=== PATIENT | male | born 1955 | race Caucasian/White ===

== ENCOUNTER → 2016-11-11 | Outpatient (CLI) | payer MEDICARE, OTHER ==
[~2016-11-11] MED LIST: AMLODIPINE BESYL5 MG PO; AMOXICILLIN875 MG PO; AMOXIL875 MG PO; ASPIRIN EC81 M1 PO; ASPIRINEC PO; CELEBREX PO; CETIRIZINE HCL10 MG PO; DICLOFENAC PO; FLEXERIL PO; FLEXERIL10 MG PO; FLONASE 0.05% N16 GM NS; FUROSEMIDE40 MG PO; KEFLEX PO; LASIX PO; LASIX20 MG PO; LEVAQUIN PO; LOPRESSOR PO; LORTAB 10-3251 EACH PO; LORTAB 7.5-5001 TAB PO; LOSARTAN POTASS50 MG PO; MEDROL4 MG/DOSE- PO; METOPROLOL SUCC25 MG PO; METOPROLOL TAR25 MG PO; MUCINEX DM1 TAB.SR . PO; NEURONTIN600 MG PO; OMEPRAZOLE40 MG PO; OXYCODON HCL-AP1 TA2 PO; OXYCODONE HCL10 MG PO; PRILOSEC PO; TIZANIDINE HCL2 MG PO; VOLTAREN; ZYRTEC PO
--- NOTE | ~2016-11-11 | EKG ---
PATIENT: BERYL ESCOBAR UNIT #: [id number] Ventricular Rate: 68 BPM Atrial Rate: 68 BPM P-R Interval: 162 ms QRS Duration: 98 ms Q-T Interval: 380 ms QTC Calculation(Bezet): 404 ms P Cleveland: 63 degrees Calculated R Cleveland: 3 degrees Calculated T Cleveland: 25 degrees Diagnosis Line: Normal sinus rhythm Diagnosis Line: Low voltage QRS Diagnosis Line: Borderline ECG Diagnosis Line: When compared with ECG of 17-JUL-2011 14:20, Diagnosis Line: No significant change was found Diagnosis Line: Confirmed by SHANA VALADEZ MD ([id number]) on Diagnosis Line: 11/11/2016 12:13:56 PM INTERPRETING MD: LYUDMILA
[2016-11-11 12:24] LABS: BUN/CREATININE RATIO 15.88; CALCIUM SERUM 9.2 mg/dL (8.4-10.2); CREATININE SERUM 1.7 mg/dL (0.6-1.4); GLOM FILT RATE Estimated 43.5 mL/min (>60); POTASSIUM 4.9 mmol/L (3.5-5.1)
== END | disposition home or self-care (01) ==
LOC: CAMB 09:42
PROVIDERS: Orthopaedic Surgery
DX: Z01.818 Encounter for other preprocedural examination (principal); M19.071 Primary osteoarthritis, right ankle and foot; Q66.1 Congenital talipes calcaneovarus
CPT/HCPCS: 36415; 80048; 93005

== ENCOUNTER 2016-11-25 06:08 | Inpatient (IN) | payer MEDICARE, OTHER ==
--- NOTE | ~2016-11-25 | OR ---
Unit #: [id number] #: [id number] Patient: BERYL ESCOBAR [id number] [address] [place], [place] [address] [id number] MR#: [id number] NAME: BERYL ESCOBAR. ROOM: 460 Date of Procedure: 11/25/2016 Admission Date: 11/25/2016 Surgeon: Agatha Jones M.D. : 1955 Attending Physician: Agatha Jones M.D. Referring Physician: Agatha Jones M.D. Primary Care Physician: Barrett Mckenzie M.D. OPERATIVE REPORT PREOPERATIVE DIAGNOSES 1. Right ankle degenerative arthritis. 2. Right cavovarus foot. 3. Right peroneus brevis and longus tendon tears. 4. Right L5-S1 radiculopathy with eversion weakness. POSTOPERATIVE DIAGNOSES 1. Right ankle degenerative arthritis. 2. Right cavovarus foot. 3. Right peroneus brevis and longus tendon tears. 4. Right L5-S1 radiculopathy with eversion weakness. PROCEDURES PERFORMED 1. Right ankle fusion (76756). 2. Right lateralizing calcaneal osteotomy (21141). 3. Right first metatarsal elevating osteotomy (15894). 4. Right posterior tibial tendon transfer to peroneus brevis (65282). ASSISTANTS MD Mike and JESSICA Washington. ANESTHESIA General and popliteal saphenous block. INDICATIONS FOR SURGERY The patient is a 61-year-old male with a previous lumbar spine surgery, who now presents with severe right eversion weakness, symptomatic ankle arthritis, unresponsive to conservative care, and a cavovarus foot. He has 10 degrees of hindfoot varus. He has absent eversion and weak inversion along with normal ankle dorsiflexion and slightly weak plantar flexion. EMGs documented superimposed L5-S1 radiculopathy and peripheral neuropathy. The patient does have a history of alcohol abuse. The patient has failed conservative care. He is therefore to undergo operative correction of the above-mentioned deformities. The posterior tibial tendon appears to be a deforming force on the foot and therefore we will transfer the posterior tibial tendon to the peroneus brevis tendon to realign the foot and correct his supination deformity. DESCRIPTION OF PROCEDURE The patient underwent right popliteal saphenous block. He was taken to the operating room and placed in a supine position. General anesthetic was induced. The right lower extremity was prepped and draped in the Unit #: [id number] #: [id number] Patient: BERYL ESCOBAR usual sterile fashion. A time-out was performed identifying the right ankle as the correct operative extremity. The IV antibiotic protocol was followed. A 7 cm anterolateral longitudinal incision was made over the ankle joint. Subcutaneous tissue was carefully divided. The extensor retinaculum was opened. The extensor musculature was retracted medially. The joint was exposed with subperiosteal dissection. The power osteotome, curved curettes, and rongeurs were utilized to remove the articular cartilage from both sides of the ankle joint. A 1 cm segment of fibula was resected at the level of the joint line. This piece of bone was morselized to be utilized for autogenous bone graft later in the case. 3 mL of Augment platelet-derived growth factor was then placed into the tibiotalar joint and the joint was positioned appropriately. It was then fixated with three cannulated partially threaded OrthoHelix 7.0 mm diameter cancellous screws. One screw was placed from proximal medial to distal lateral, a second was placed from proximal lateral to distal medial, a third was placed from posterior to anterior into the talar neck. Excellent fixation was achieved. Care was taken to ensure that the ankle was in neutral dorsiflexion and was completely corrected out of varus. At this point, it was noted that the first metatarsal head was depressed and that the forefoot was resting about 15 degrees of forefoot valgus, therefore an elevating first metatarsal base osteotomy was required. A dorsal longitudinal incision was made over the first metatarsal base. Subcutaneous tissue was divided. The extensor hallucis longus tendon was retracted. The microsagittal saw was used to make a dorsal closing wedge osteotomy of the first metatarsal base beginning 1.5 cm distal to the first tarsometatarsal joint. The bony wedge was removed and saved for autogenous graft for the tibiotalar joint. The osteotomy was closed and fixated with a tension band technique. An OrthoHelix 4.0 mm diameter cannulated screw was placed in the proximal fragment and a drill hole was placed transversely through the distal fragment. 20-gauge wire was placed through the hole in the distal fragment and wrapped in a [id number] fashion around the head of the screw and then tightened with a large needle local combination truck driver. Excellent fixation was achieved. The wire was cut and then bent to close to the bone and the screw was then tightened. A medial longitudinal incision was then made over the posterior tibial tendon sheath distally. The subcutaneous tissue was divided. The tendon sheath was opened. The posterior tibial tendon was sharply dissected off the navicular and tagged with 2-0 Vicryl. A 5 cm medial longitudinal incision was made along the medial tibia 10 cm proximal to the ankle joint. The deep muscle fascia was opened. The posterior tibial tendon was then retrieved and the free end was pulled into this wound. A 12 cm lateral longitudinal incision was made beginning 6 cm proximal to the tip of the fibula and ending at the base of the fifth metatarsal. Subcutaneous tissue was carefully divided. The peroneal tendon sheath was opened. There was extensive scarring and tearing of both the peroneus longus and brevis tendons, which were completely nonfunctioning and scarred to the sheath into the underlying calcaneus. Both tendons were resected; however, there was a 3 cm segment of the peroneus brevis, which appeared normal and was left attached to the fifth metatarsal base. The peroneal tubercle was enlarged and was excised with the power osteotome. Unit #: [id number] #: [id number] Patient: BERYL ESCOBAR The free end of the posterior tibial tendon was then passed behind the fibula into the lateral wound and then passed along the lateral foot and was sutured to the peroneus brevis tendon using a Krackow suture with 2-0 FiberWire suture. Additional crjftt-qa-[id number] sutures were placed at the repair site to ensure a strong repair of the posterior tibial tendon to the stump of the peroneus brevis tendon. The lateral calcaneus was then exposed just posterior to the peroneal tendon sheath. Baby Hohmann retractors were placed. The microsagittal saw and power osteotome were then used to osteotomize the calcaneus at a 45 degrees angle to the plantar aspect of the foot. A laminar cytogenetic technician was placed. The medial soft tissues were spread with a laminar cytogenetic technician. The calcaneus was then displaced laterally 1 cm and fixated with the OrthoHelix ISO plate. The ISO plate blade was impacted into the posterior fragment and the blade was fixated to the calcaneus with a screw. A transverse screw was placed in the more anterior fragment. Excellent fixation was achieved. It was then found that the heel was now in about 2 degrees of valgus. The ankle was fused in proper position and the posterior tibial tendon transfer appeared to be stable. The tourniquet was released with a total tourniquet time of 2 hours and 10 minutes. Bleeding was controlled with electrocautery. The deep tissues were closed with 2-0 Vicryl. Subcutaneous tissue was closed with 3-0 Vicryl. Skin was closed with 3-0 nylon horizontal mattress sutures. Xeroform gauze, dressing, sponges, Webril, and a posterior fiberglass splint were applied. The patient was then transported to the recovery room in stable condition. ESTIMATED BLOOD LOSS 100 mL. COMPLICATIONS None. SPECIMENS None. TOURNIQUET TIME 2 hours and 10 minutes. PLAN The patient will be nonweightbearing for 3 months postoperatively. Dictated by.Will Davis/yuni TD: 11/25/2016 18:49 JOB #: [id number] Unit #: [id number] #: [id number] Patient: BERYL ESCOBAR OPERATIVE REPORT X Missy Jones MD X PROCEDURE OPERATIVE NOTE
--- NOTE | ~2016-11-25 | HP ---
Unit #: [id number] #: [id number] Patient: BERYL ESCOBAR [id number] [address] [place], [place] [address] [id number] MR#: [id number] NAME: BERYL ESCOBAR. ROOM: Age: Sex: M Admission Date: 11/25/2016 : 1955 Attending Physician: Agatha Jones M.D. Referring Physician: Agatha Jones M.D. Primary Care Physician: Barrett Mckenzie M.D. HISTORY AND PHYSICAL DATE OF ANTICIPATED ADMISSION/PROCEDURE November 25, 2016 CHIEF COMPLAINT Right ankle pain and leg weakness. HISTORY OF PRESENT ILLNESS The patient is a 61-year-old male who presents with significant right ankle pain, right-sided weakness, and varus instability. The patient had back surgery three years ago, and he has had weakness and tingling in his foot ever since. He wears custom orthotics and uses a cane. He is also on gabapentin and sees a pain medicine specialist. The foot exam shows a cavovarus foot with eight degrees of heel varus. X-rays show four degrees of tibiotalar varus. The patient underwent EMGs and nerve conduction studies which show a bilateral L5 and S1 radiculopathy, right worse than left, as well as a concomitant peripheral neuropathy. Right ankle MRI shows a complete peroneus brevis tear and a tear of the peroneus longus with the presence of an os peroneum. The patient also has degenerative arthritis of the medial aspect of tibial plafond with loss of articular cartilage of one-third of the ankle joint space. The patient has continued right ankle instability particularly in inversion and has significant ankle pain. The patient is therefore admitted for right ankle fusion, lateralizing calcaneal osteotomy, transfer of the posterior tibial tendon to the peroneus brevis tendon, and possible elevating osteotomy of the first metatarsal. PAST MEDICAL HISTORY 1. History of alcohol abuse. 2. Former smoker. 3. Gastroesophageal reflux disease. 4. Lumbar radiculopathy. 5. Hepatic steatosis. 6. Cavovarus foot deformity. PAST SURGICAL HISTORY 1. Lower back surgery. 2. Neck surgery. HOME MEDICATIONS 1. Cetirizine. Unit #: [id number] #: [id number] Patient: BERYL ESCOBAR 2. Cyclobenzaprine. 3. Fluticasone. 4. Furosemide. 5. Gabapentin. 6. Hydrocodone. 7. Losartan. 8. Metoprolol. 9. Omeprazole. 10. Voltaren gel. ALLERGIES AMLODIPINE, LISINOPRIL, AND METOPROLOL. FAMILY HISTORY Hypertension, arthritis. SOCIAL HISTORY The patient is a heavy drinker drinking 15 alcoholic drinks a week. He is a former smoker with greater than five pack-year history. PHYSICAL EXAMINATION GENERAL: This is a well-developed, well-nourished male in no acute distress. HEENT: Pharynx is clear. NECK: Supple without masses. HEART: Regular sinus rhythm without murmurs or gallops. LUNGS: Clear. ABDOMEN: Soft and nontender without masses or organomegaly. EXTREMITIES: Gait evaluation shows that patient has an abnormal mildly antalgic gait. He is unable to heel or toe walk. The patient has 3+/4 knee reflexes bilaterally. His right ankle jerk is 0/4, and the left ankle jerk is 1/4. On standing, the patient has 10 degrees of hindfoot varus. He has very weak right ankle eversion. He exhibits 5-/5 ankle dorsiflexion, 5+/5 ankle inversion, and 5+/5 ankle plantar flexion. The patient is maximally tender over the anteromedial ankle joint and lateral hindfoot and peroneal tendon sheath. The patient has a weak flexor hallucis longus and flexor digitorum longus function. The FHL is not amenable to transfer given this weakness. The patient has a mild cavus deformity of the foot, but there is no evidence of fixed forefoot valgus. DIAGNOSTIC STUDIES IMAGING: Standing x-rays of the right ankle show eight degrees of tibiotalar varus. There is mild narrowing of the superomedial joint space. Right ankle MRI shows cartilaginous loss of the medial tibial plafond with joint space narrowing. The patient also has tears of the brevis and longus tendons. ADMITTING DIAGNOSES 1. Symptomatic right heel varus secondary to L5 and S1 radiculopathy and chronic tears of the peroneus brevis and longus tendons. 2. Right ankle varus degenerative arthritis. PLAN The patient has failed conservative care. He is therefore admitted for operative intervention. This will entail right ankle fusion, lateralizing calcaneal osteotomy, transfer of the posterior tibial tendon to the Unit #: [id number] #: [id number] Patient: BERYL ESCOBAR peroneus brevis tendon and elevating first metatarsal osteotomy. We will use Augment platelet-derived growth factor. This procedure was described along with the risks of bleeding, infection, nerve damage, need for further surgery in the future, prolonged recovery time, deep venous thrombosis, pulmonary embolism, anesthetic complications, no guarantee of a normal foot, persistent limp, failure to fuse, and wound healing problems. He understands the above risks and agrees to proceed. He understands he will be nonweightbearing three months postoperatively. Dictated by Will Giordano/remington TD: 11/24/2016 21:12 JOB #: [id number] HISTORY AND PHYSICAL X Missy Jones MD X HISTORY AND PHYSICAL
--- NOTE | ~2016-11-25 | CO ---
Unit #: [id number] #: [id number] Patient: BERYL ESCOBAR [id number] [facility]. [place], [place] [address] [id number] I MR#: [id number] NAME: BERYL ESCOBAR. ROOM: [facility] Age: 61 Sex: M Admission Date: 11/25/2016 : 1955 Attending Physician: Agatha Jones M.D. Primary Care Physician: Barrett Mckenzie M.D. Consultation Date: 11/25/2016 CONSULTATION REPORT REASON FOR CONSULTATION History of alcohol abuse. HISTORY OF PRESENT ILLNESS The patient is a 61-year-old male with past medical history of hypertension, GERD, Miller esophagus, pancreatitis, obstructive sleep apnea, who was admitted by Dr. Jones for right ankle surgery. The patient states that he has had at least five years of right ankle pain. He states that he initially injured his ankle at work. 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 He states that he has had persistent pain since that time. He has tried orthotics as well a physical therapy. He was seen by Dr. Jones who recommended surgery. The patient denies any fever, no cough or cold symptoms, no chest pain, no difficulty breathing. He denies any vomiting or diarrhea. He states that he does have obstructive sleep apnea but is noncompliant with CPAP. Also of note, he has a history of heavy alcohol use but he states that his last drink was more than five years ago. PAST MEDICAL HISTORY 1. Admission to [facility] September 27-2010 for pancreatitis. 2. GERD. 3. Lumbar radiculopathy. 4. Miller esophagus. 5. Hypertension. PAST SURGICAL HISTORY 1. Back surgery. 2. Neck surgery. 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 He has a history of alcohol abuse with the last drink being more than five years ago. He denies tobacco use. FAMILY HISTORY Family history is notable for his dad having thyroid issues. ALLERGIES TRAVIS inhibitors. HOME MEDICATIONS 1. Losartan 50 mg daily. Unit #: [id number] #: [id number] Patient: BERYL ESCOBAR 2. Metoprolol 25 mg daily. 3. Cetirizine 10 mg daily. 4. Flonase b.i.d. 5. Furosemide 40 mg daily. 6. Flexeril 10 mg daily p.r.n. 7. Neurontin 600 mg t.i.d. 8. Prilosec 40 mg b.i.d. 9. Diclofenac cream daily. 10. Oxycodone 10 mg b.i.d. REVIEW OF SYSTEMS A complete review of systems is negative except as indicated in the HPI. DIAGNOSTIC STUDIES CARDIOVASCULAR: EKG from November 11 showed normal sinus rhythm with a rate of 68 beats per minute. PHYSICAL EXAMINATION VITAL SIGNS: Temperature is 97.6. Blood pressure 98/61, pulse 74, respirations 12, oxygen saturation 95% on room air. GENERAL: The patient is a male who is awake and alert, in no acute distress. HEENT: The head is atraumatic. Mucous membranes are moist. NECK: Neck is supple. Trachea is midline. CARDIOVASCULAR: Regular rate and rhythm. LUNGS: Lungs are clear to auscultation bilaterally with no increased work of breathing. ABDOMEN: Abdomen is soft, nontender, with bowel sounds present all four quadrants. EXTREMITIES: The right ankle is in an TRAVIS bandage that is clean, dry and intact. There is no pedal edema involving the left lower extremity. NEUROLOGIC: The patient is awake and alert. He follows commands. PSYCHIATRIC: Mood and affect are normal. The patient is cooperative. SKIN: Skin of examined areas is warm and dry. ASSESSMENT The patient is a 61-year-old male with: 1. Status post right ankle surgery. 2. Hypertension. The patient's home medications have been restarted. 3. Gastroesophageal reflux disease. 4. History of Miller esophagus. The patient has seen Dr. Harris in the most recent past. He had an EGD on October 11, 2014 that showed short segment of Miller esophagus and moderate gastritis. The pathology report did show findings consistent with focal Miller esophagus but was negative for malignancy. 5. History of pancreatitis. 6. History of heavy alcohol use. The reason for consultation was history of alcohol abuse however the patient states that it has been more than five years since his last drink. 7. Obstructive sleep apnea, noncompliant with CPAP. PLAN 1. Regarding the patient's chronic medical conditions, his home medications have been restarted. 2. Regarding obstructive sleep apnea, I have ordered the obstructive sleep apnea protocol as the patient is noncompliant with CPAP. 3. Regarding history of heavy alcohol use, the patient states that his last drink was more than five years ago. Unit #: [id number] #: [id number] Patient: BERYL ESCOBAR Thank you very much for the consultation. We will follow the patient along closely with you. Dictated by... Will Hunt/lucy TD: 11/25/2016 17:33 JOB #: [id number] CONSULTATION REPORT X Melisa Arias MD X CONSULTATION REPORT
--- NOTE | ~2016-11-25 | DS ---
Unit #: [id number] #: [id number] Patient: BERYL ESCOBAR [id number] [place], [place] [address] [id number] I MR#: [id number] NAME: BERYL ESCOBAR ROOM: 460 Age: 61 Sex: M Admission Date: 11/25/2016 : 1955 Discharge Date: Attending Physician: Agatha Jones M.D. Referring Physician: Agatha Jones M.D. Primary Care Physician: Barrett Mckenzie M.D. DISCHARGE SUMMARY ADDENDUM The patient's discharge was delayed for workup of a small postoperative fever (isolated fever of 101). Workup was negative with UA, blood cultures and chest x-ray. This was suspected secondary to atelectasis. No further treatment is required. He has been cleared by internal medicine service at this time to be discharged to rehab facility. From an orthopedic standpoint, he is non-weight bearing on the affected extremity. He should follow up with Dr. Jones as scheduled. Dictated by... Jose Young M.D. STEFANIE/julio c TD: 11/29/2016 10:34 JOB #: [id number] DISCHARGE SUMMARY X Jose Young MD DISCHARGE SUMMARY
--- NOTE | ~2016-11-25 | CR72 ---
[facility] A Service of [facility] RADIOLOGY TEXT RESULTS PATIENT: BERYL ESCOBAR LOCATION: [facility] 460-01 : [birth year] UNIT #: [id number] AGE: [address]: Missy Jones MD SEX: M ORDER DR: [id number] [facility] [address] [facility]. [place], [place] [address] [id number] MR#: [id number] Acc #: [id number] NAME: BERYL ESCOBAR. : 1955 SEX: M STUDY DATE/TIME: UNIT: [facility] ROOM: [facility] STUDY DESCRIPTION: CR Chest Single View Portable Attending Physician: Agatha Jones M.D. Referring Physician: Agatha Jones M.D. Ordering Physician: Amelia Abraham A.P.R.N. Primary Care Physician: Barrett Mckenzie M.D. MEDICAL IMAGING REPORT This report is preliminary unless electronic signature is present EXAM Chest portable 11/27/2016 1340 hours HISTORY 61-year-old man complaining of shortness of air today. COMPARISON 08/08/2016 FINDINGS Portable upright chest demonstrates normal heart size with stable tortuous aorta. The lungs are clear and there are no effusions. IMPRESSION Stable heart size at the upper limits of normal with stable tortuous aorta. The lungs are clear. There are no effusions. Dictated by... Princess Warren M.D. THIS IS AN ELECTRONICALLY VERIFIED REPORT Princess Warren M.D. at 11/28/2016 9:18 AM SMM/nicole TD: 11/27/2016 18:38 JOB #: [id number] MEDICAL IMAGING REPORT COPY
--- NOTE | ~2016-11-25 | DS ---
Unit #: [id number] #: [id number] Patient: BERYL CAIN [id number] [address] [place], [place] [address] [id number] I MR#: [id number] NAME: BERYL CAIN. ROOM: [facility] Age: Sex: M Admission Date: 11/25/2016 : 1955 Discharge Date: 11/28/2016 Attending Physician: Agatha Jones M.D. Referring Physician: Agatha Jones M.D. Primary Care Physician: Barrett Mckenzie M.D. DISCHARGE SUMMARY HISTORY OF PRESENT ILLNESS Mr. Cain is a 61-year-old male who was hospitalized for diagnosis of right ankle DJD and cavovarus foot. He has a history of hypertension, GERD, history of Miller's esophagitis, pancreatitis, heavy alcohol use, obstructive sleep apnea. Mr. Cain was taken to the operating room on November 25, 2016 for a right ankle fusion, calcaneal osteotomy, first metatarsal osteotomy, and posterior tibial tendon transfer. He tolerated this procedure well and was returned to the floor in a good condition. 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 He was weaned off the HOT STRIP MILL SUPERVISOR and his pain was well controlled with just oral pain medications. He worked with physical therapy and remained nonweightbearing on the right lower extremity and worked on using a walker as well as a knee scooter. He tolerated his diet well. No instances of nausea or vomiting. He was medically stable throughout his stay. He did spike a fever to 101 degrees and a sepsis workup was performed including blood cultures, UA, chest pain, CBC, lactic acid which all returned within normal limits. He has done well since. Mr. Cain will be discharged to a short-term rehab facility. DISCHARGE MEDICATIONS Current list of medications he is taking include: 1. Fluticasone propionate as needed. 2. Rivaroxaban 10 mg once daily. 3. Gabapentin 600 mg t.i.d. 4. Cetirizine 10 mg p.o. daily. 5. Metoprolol 25 mg daily. 6. Percocet 10/325 one to two tabs p.o. q.4 hours p.r.n. pain. 7. Omeprazole 40 mg p.o. b.i.d. 8. Cyclobenzaprine 10 mg p.o. daily. PLAN There are no medical issues or tests that are outstanding at this time. Again, he is nonweightbearing on the right lower extremity. He will follow up in [address] Jones in his clinic. Dictated by... UNKNOWN NOT KNOW for Agatha Jones M.D. / Unit #: [id number] #: [id number] Patient: BERYL CAIN TD: 11/28/2016 10:37 JOB #: [id number] DISCHARGE SUMMARY X X DISCHARGE SUMMARY
[~2016-11-25 06:08] MED LIST changes: -LASIX PO; -VOLTAREN; -ZYRTEC PO
[2016-11-25] MEDS ORDERED: VOLTAREN (07:09)
[2016-11-26 04:36] LABS: HEMATOCRIT 34.1 % (38.0-50.0); HEMOGLOBIN 11.2 gm/dL (13.0-16.0); MEAN CELL VOLUME 94.4 FL (83-96); MEAN CORPUSCULAR HEMOGLOBIN 30.9 PG (28-34); MEAN CORPUSCULAR HGB CONC 32.8 g/dL (30-36); MEAN PLATELET VOLUME 9.1 FL (6.5-11.5); RED BLOOD COUNT 3.61 X10e (3.90-5.60); RED CELL DISTRIBUTION WIDTH 14.2 % (11.0-15.5); WHITE BLOOD COUNT 6.2 X10e3 (4.0-10.5)
[2016-11-26 04:55] LABS: ALBUMIN SERUM 3.5 g/dL (3.5-5.0); ALKALINE PHOSPHATASE 57 U/L (32-92); ALT (SGPT) 14 U/L (10-40); AST (SGOT) 10 U/L (10-42); BILIRUBIN,TOTAL 0.6 mg/dL (0.2-2.0); BLOOD UREA NITROGEN 15 mg/dL (9-23); CALCIUM SERUM 8.2 mg/dL (8.4-10.2); CARBON DIOXIDE 26 mmol/L (22-31); CHLORIDE 107 mmol/L (100-111); CREATININE SERUM 1.2 mg/dL (0.6-1.4); GLOM FILT RATE Estimated ABOVE60 mL/min (>60); GLUCOSE FASTING 120 mg/dL (70-110); POTASSIUM 4.1 mmol/L (3.5-5.1); PROTEIN TOTAL SERUM 6.2 g/dL (6.0-8.3); SODIUM 138 mmol/L (135-145)
[2016-11-27 04:09] LABS: BASOPHIL% 0.5 % (0-2.5); EOSINOPHIL# 0.1 X10e3 (0-0.7); EOSINOPHIL% 1.7 % (0.0-7.0); HEMATOCRIT 33.3 % (38.0-50.0); LYMPHOCYTE# 2.2 X10e3 (1.0-3.5); LYMPHOCYTE% 30.2 % (17.0-45.0); MEAN CELL VOLUME 94.7 FL (83-96); MEAN CORPUSCULAR HEMOGLOBIN 31.4 PG (28-34); MEAN CORPUSCULAR HGB CONC 33.1 g/dL (30-36); MEAN PLATELET VOLUME 9.3 FL (6.5-11.5); MONOCYTE# 1.1 X10e3 (0-1.0); MONOCYTE% 15.6 % (3.0-12.0); NEUTROPHIL# 3.8 X10e3 (1.5-7.1); PLATELET COUNT 133 X10e3 (140-420); RED BLOOD COUNT 3.52 X10e (3.90-5.60); RED CELL DISTRIBUTION WIDTH 14.1 % (11.0-15.5); WHITE BLOOD COUNT 7.4 X10e3 (4.0-10.5)
[2016-11-27 04:10] LABS: DIFF IND NO
[2016-11-27 04:36] LABS: BUN/CREATININE RATIO 11.87; CALCIUM SERUM 8.3 mg/dL (8.4-10.2); CREATININE SERUM 1.6 mg/dL (0.6-1.4); GLOM FILT RATE Estimated 46.6 mL/min (>60); MAGNESIUM 1.6 mg/dL (1.6-3.0); POTASSIUM 4.1 mmol/L (3.5-5.1)
[2016-11-27 16:31] LABS: URINE SOURCE CLEAN CATCH
[2016-11-27 16:46] LABS: URINE APPEARANCE CLEAR; URINE BILIRUBIN NEG (NEG); URINE BLOOD NEG (NEG); URINE COLOR YELLOW; URINE GLUCOSE NEG (NEG); URINE KETONE NEG (NEG); URINE LEUKOCYTE ESTERASE NEG (NEG); URINE NITRATE NEG (NEG); URINE PH 6.5 (5-8); URINE PROTEIN NEG (NEG); URINE SPECIFIC GRAVITY 1.012 (1.003-1.035); URINE UROBILINOGEN 0.2 MG/DL (NEG)
[2016-11-27 16:52] LABS: CULTURE INDICATED? NO
[2016-11-28 03:07] LABS: HEMATOCRIT 30.6 % (38.0-50.0); HEMOGLOBIN 10.2 gm/dL (13.0-16.0); MEAN CELL VOLUME 94.5 FL (83-96); MEAN CORPUSCULAR HEMOGLOBIN 31.4 PG (28-34); MEAN CORPUSCULAR HGB CONC 33.2 g/dL (30-36); MEAN PLATELET VOLUME 9.2 FL (6.5-11.5); RED BLOOD COUNT 3.24 X10e (3.90-5.60); RED CELL DISTRIBUTION WIDTH 13.8 % (11.0-15.5); WHITE BLOOD COUNT 6.3 X10e3 (4.0-10.5)
[2016-11-28 03:28] LABS: BILIRUBIN,TOTAL 0.4 mg/dL (0.2-2.0); BUN/CREATININE RATIO 12.14; CALCIUM SERUM 8.4 mg/dL (8.4-10.2); CREATININE SERUM 1.4 mg/dL (0.6-1.4); GLOM FILT RATE Estimated 54.4 mL/min (>60); MAGNESIUM 1.8 mg/dL (1.6-3.0); POTASSIUM 4.2 mmol/L (3.5-5.1); PROTEIN TOTAL SERUM 5.7 g/dL (6.0-8.3)
[2016-11-29 03:45] LABS: HEMATOCRIT 33.6 % (38.0-50.0); MEAN CELL VOLUME 94.8 FL (83-96); MEAN CORPUSCULAR HEMOGLOBIN 31.1 PG (28-34); MEAN CORPUSCULAR HGB CONC 32.8 g/dL (30-36); MEAN PLATELET VOLUME 8.8 FL (6.5-11.5); RED BLOOD COUNT 3.54 X10e (3.90-5.60); RED CELL DISTRIBUTION WIDTH 13.5 % (11.0-15.5); WHITE BLOOD COUNT 5.5 X10e3 (4.0-10.5)
[2016-11-29 04:16] LABS: BUN/CREATININE RATIO 12.14; CALCIUM SERUM 8.9 mg/dL (8.4-10.2); CREATININE SERUM 1.4 mg/dL (0.6-1.4); GLOM FILT RATE Estimated 54.4 mL/min (>60); MAGNESIUM 1.8 mg/dL (1.6-3.0); POTASSIUM 4.5 mmol/L (3.5-5.1)
[2017-05-04] MEDS ORDERED: ZYRTEC PO (10:23)
[2017-05-04] MEDS ORDERED: LASIX PO (10:23)
== END 2016-11-29 14:00 | DRG 493 ==
LOC: CSUR 06:08 → CPACUOF 06:30 → C4B 13:05
PROVIDERS: Family Medicine; Nurse Practitioner; Orthopaedic Surgery
PROC: 0QBL0ZZ Excision of Right Tarsal, Open Approach (ICD-10-PCS; 2016-11-25)
PROC: 0LXS0ZZ Transfer Right Ankle Tendon, Open Approach (ICD-10-PCS; 2016-11-25)
PROC: 0SGF07Z Fusion of Right Ankle Joint with Autologous Tissue Substitute, Open Approach (ICD-10-PCS; principal; 2016-11-25 08:30)
PROC: 0QBJ0ZZ Excision of Right Fibula, Open Approach (ICD-10-PCS; 2016-11-25 08:30)
PROC: 0SGF04Z Fusion of Right Ankle Joint with Internal Fixation Device, Open Approach (ICD-10-PCS; 2016-11-25 08:30)
PROC: 0QBN0ZZ Excision of Right Metatarsal, Open Approach (ICD-10-PCS; 2016-11-25 08:30)
DX: Q66.1 Congenital talipes calcaneovarus (principal); J98.11 Atelectasis; K76.0 Fatty (change of) liver, not elsewhere classified; I10 Essential (primary) hypertension; M54.17 Radiculopathy, lumbosacral region; M19.071 Primary osteoarthritis, right ankle and foot; K21.9 Gastro-esophageal reflux disease without esophagitis; Z87.891 Personal history of nicotine dependence; S96.811A Strain of other specified muscles and tendons at ankle and foot level, right foot, initial encounter; G47.33 Obstructive sleep apnea (adult) (pediatric); K22.70 Barrett's esophagus without dysplasia; Z91.19 Patient's noncompliance with other medical treatment and regimen; R50.82 Postprocedural fever; R73.9 Hyperglycemia, unspecified
CPT/HCPCS: 71010; 80048; 80053; 80202; 81003; 82947; 83036; 83605; 83735; 85025; 85027; 87040; 94010; 94760; 94761; 97116; 97162; 97530; C1713; G8978-GP; G8979-GP; J0690; J0696; J2250; J2270; J2795; J3010; J3370; J3411; J3475; J7042

== ENCOUNTER → 2017-01-21 | Outpatient (CLI) | payer MEDICARE, OTHER ==
[~2017-01-21] MED LIST changes: +LASIX PO; +VOLTAREN; +ZYRTEC PO
--- NOTE | ~2017-01-21 | US85 ---
[facility] A Service of [facility] & [facility] RADIOLOGY TEXT RESULTS PATIENT: BERYL ESCOBAR LOCATION: CNIV : 51 UNIT #: [id number] AGE: [address]: BRITTNY PANIAGUA PA-C SEX: M ORDER DR: [id number] [facility] [address] [facility]. [place], [place] [address] [id number] O MR#: [id number] Acc #: [id number] NAME: BERYL ESCOBAR. : 1955 SEX: M STUDY DATE/TIME: 01/21/2017 12:59 UNIT: CNIV ROOM: STUDY DESCRIPTION: SHAY [employer] Stdy Attending Physician: Brittny Paniagua Pa-C Referring Physician: Brittny Paniagua Pa-C Ordering Physician: Physician Non-Staff Primary Care Physician: Barrett Mckenzie M.D. MEDICAL IMAGING REPORT This report is preliminary unless electronic signature is present EXAM Right lower extremity venous ultrasound. HISTORY Right leg swelling status post ankle fusion. Evaluate for DVT. Right lower extremity swelling 3 months, intermittent. Right ankle surgery October 2016. No history of DVT or SVT. TECHNIQUE Real-time ultrasonography of the right lower extremity venous structures performed. Gale-scale, color Doppler, Doppler pulse-wave interrogation utilized. FINDINGS Right common femoral vein, profunda femoris vein, femoral vein, popliteal vein, posterior tibial, peroneal, anterior tibial veins patent with normal compressibility where anatomically possible and normal color Doppler interrogation demonstrating [id number]-[id number] flow. In the right popliteal fossa, there is an ovoid fluid collection measuring 4.85 cm x 2.58 cm x 0.73 cm. It may contain some minimal internal septations. 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 Note is made of some mild subcutaneous edema in the foreleg. The great saphenous vein is patent. IMPRESSION 1. Right lower extremity venous ultrasound shows no evidence of deep or superficial venous thrombosis at time of this examination. 2. Mildly complicated fluid collection right popliteal fossa measuring 4.85 cm x 2.58 cm x 0.73 cm, most consistent with dissecting synovial/Henson cyst. Clinical followup recommended. [facility]. [facility] A Service of [facility] & [facility] RADIOLOGY TEXT RESULTS PATIENT: BERYL ESCOBAR LOCATION: [facility] : 53 UNIT #: [id number] AGE: [address]: BRITTNY PANIAGUA PA-C SEX: M ORDER DR: 3. Mild subcutaneous edema right foreleg. Dictated by... Dave Meza M.D. THIS IS AN ELECTRONICALLY VERIFIED REPORT Dave Meza M.D. at 01/21/2017 6:14 PM ASHISH/carline TD: 01/21/2017 15:55 JOB #: [id number] MEDICAL IMAGING REPORT Page 1 of 1 COPY
== END | disposition home or self-care (01) ==
LOC: CNIV 12:29
DX: R79.89 Other specified abnormal findings of blood chemistry (principal); R60.0 Localized edema; Z98.890 Other specified postprocedural states
CPT/HCPCS: 93971

== ENCOUNTER → 2017-04-03 | Outpatient (CLI) | payer MEDICARE, OTHER ==
--- NOTE | ~2017-04-03 | CT95 ---
[facility] A Service of [facility] & [facility] RADIOLOGY TEXT RESULTS PATIENT: BERYL ESCOBAR LOCATION: [facility] : 53 UNIT #: [id number] AGE: [address]: BRITTNY PANIAGUA PA-C SEX: M ORDER DR: [id number] [address] [address] [id number] O MR#: [id number] Acc #: [id number] NAME: BERYL SECOBAR. : 1955 SEX: M STUDY DATE/TIME: 04/03/2017 14:33 UNIT: [facility] ROOM: STUDY DESCRIPTION: CT Lower Ext Rt Wo Cont Attending Physician: Brittny Paniagua Pa-C Referring Physician: Brittny Paniagua Pa-C Ordering Physician: Barrett Mckenzie M.D. Primary Care Physician: Barrett Mckenzie M.D. MEDICAL IMAGING REPORT This report is preliminary unless electronic signature is present. EXAM CT right ankle HISTORY 61-year-old male with pain and swelling right foot and ankle x4 months. Patient is status post fusion. Fusion November 2016. Clinical concern for delayed healing. COMPARISON Right ankle films 04/02/2017 and 09/17/2016. FINDINGS Thin section axial images performed through the right ankle with multiplanar reconstructions. No contrast. This CT examination was performed with one or more of the following radiation dose reduction techniques: automatic exposure control, adjustment of mA and/or kV according to patient size, and iterative reconstruction. Postoperative changes are noted of the ankle with apparent calcaneal osteotomy. Lateral plate and anchors in place. The osteotomy appears healed. No fracture or loosening of the calcaneal instrumentation. The patient has also undergone ankle fusion procedure with 3 cannulated screws traversing the ankle joint, 1 from the medial side, 1 from the lateral side and the third from a posterior approach. There is sclerosis and some interdigitation across the ankle joint but only minimal bony fusion noted. This is predominantly along the posterior aspect of the ankle joint. No fracture or loosening of the instrumentation. There is some periostitis or callus overlying the heads of the 3 screws. The ankle joint is estimated at no more than 25% fused. Some bone fragments are noted about the ankle joint most likely related to fusion procedure. A screw is noted in the proximal first metatarsal which may be related to prior osteotomy. Subtalar joint unremarkable. Normal midfoot alignment. [facility]. [facility] A Service of [facility] RADIOLOGY TEXT RESULTS PATIENT: BERYL ESCOBAR LOCATION: [facility] : 51 UNIT #: [id number] AGE: [address]: BRITTNY PANIAGUA PA-C SEX: M ORDER DR: Moderate amount of generalized soft tissue swelling and edema about the foot and ankle. Visualized ankle tendons grossly intact. IMPRESSION 1. Status post ankle fusion procedure with intact instrumentation. Estimated no more than 25% fusion across the ankle joint. No evidence of instrumentation failure. 2. Status post calcaneal osteotomy which appears well healed. 3. Single bone screw and apparent anchor or wire at the proximal first metatarsal. This may be related to prior osteotomy or fixation. 4. Generalized soft tissue swelling, edema about the foot and ankle most prominent along the lateral aspect. The peroneal tendons are difficult to evaluate due to edema but findings are suggestive of possible tendinopathy and an underlying peroneus brevis or longus tear not excluded. Dictated by... Tiki Mitchell M.D. THIS IS AN ELECTRONICALLY VERIFIED REPORT Tiki Mitchell M.D. at 04/06/2017 5:38 PM CHYNA/lorene TD: 04/06/2017 14:17 JOB #: [id number] MEDICAL IMAGING REPORT Page 1 of 1
== END | disposition home or self-care (01) ==
LOC: SCT 14:10
DX: M25.571 Pain in right ankle and joints of right foot (principal); M25.471 Effusion, right ankle; M79.89 Other specified soft tissue disorders; Z98.890 Other specified postprocedural states
CPT/HCPCS: 73700

== ENCOUNTER → 2017-05-04 | Day surgery (SDC) | payer MEDICARE, OTHER ==
--- NOTE | ~2017-05-04 | OR ---
Unit #: [id number] #: [id number] Patient: BERYL ESCOBAR [id number] [address] [address] [id number] O MR#: [id number] NAME: BERYL ESCOBAR. ROOM: Date of Procedure: 05/04/2017 Admission Date: 05/04/2017 Surgeon: Leon Harris M.D. : 1955 Attending Physician: Leon Harris M.D. Primary Care Physician: Barrett Mckenzie M.D. OPERATIVE REPORT PREOPERATIVE DIAGNOSES The patient presented for surveillance upper endoscopy, history of Miller esophagus, gastroesophageal reflux, and dyspepsia. In addition, he also needs a screening colonoscopy. PROCEDURES PERFORMED Upper gastrointestinal endoscopy and biopsies as well as colonoscopy up to cecum and terminal ileum. POSTOPERATIVE DIAGNOSES For upper endoscopy: 1. The patient had classic changes of Miller esophagus. Appropriate biopsies obtained from the Miller segment and sent for histology. 2. Moderate prepyloric antral gastritis and biopsies also obtained from the antrum for CLOtest. 3. Rest of the examination up to third part of duodenum was normal. For colonoscopy: 1. Mild sigmoid and descending colon diverticulosis. Otherwise, normal examination up to cecum and terminal ileum. The quality of the prep was excellent. No polyps were present or seen. RECOMMENDATIONS 1. Repeat upper endoscopy in 2 years. 2. Repeat colonoscopy in 10 years. SEDATION USED MAC. DESCRIPTION OF PROCEDURE Following detailed explanation of potential risks and complications of an upper endoscopy and a colonoscopy, namely perforation, bleeding, and complications related to sedation, the patient was brought to GI lab and laid in the left lateral decubitus position. Lubricated tip of the Olympus video upper endoscope was passed through the bite block into the proximal esophagus under direct vision. The entire esophageal mucosa was examined. The patient was noted to have classic changes of Miller esophagus in the distal esophagus. The Miller segment was about 3 to 3.5 cm in length. The scope was then advanced into the gastric cavity and the latter was insufflated. Mucosa of the fundus, body, and antrum examined and the patient was noted to have mild to moderate prepyloric antral erosive gastritis. Pylorus was intubated with visualization of the normal duodenal bulb and second and third part of the duodenum. Upon withdrawal Unit #: [id number] #: [id number] Patient: BERYL ESCOBAR and retroflexion, incisura, cardia, and greater curve examined and biopsy obtained from the antrum for CLOtest. The scope was then withdrawn in the distal esophagus. Biopsies obtained from the Miller segment and sent for histology. The scope was then withdrawn all the way up to pharynx. No additional findings noted. The examination table was then turned by 180 degrees and the patient positioned for a colonoscopy. A digital rectal examination was performed, which was normal. Lubricated tip of the Olympus video colonoscope was inserted through the anus and advanced under direct vision. The scope was advanced and passed up to sigmoid into descending colon. Multiple small to medium-sized diverticula were seen in this area. The scope tip was then navigated all the way up to cecum with visualization of ileocecal valve and the appendiceal orifice. Preparation was excellent with good visualization and photodocumentation was obtained. Last several inches of the terminal ileum also visualized after intubation of the ileocecal valve and appeared normal. Successive segments of the colonic mucosa were examined upon withdrawal and appeared unremarkable. There being no polyps, mass lesions, or AVMs. Other than the left-sided diverticula, no other abnormalities noted. The patient did not have any hemorrhoids at anal verge. The scope was then withdrawn. The patient returned to the recovery area. He tolerated the procedure without any postprocedure complications. Dictated by.Will Bruno/yuni TD: 05/06/2017 18:10 JOB #: [id number] CC: Barrett Mckenzie M.D. OPERATIVE REPORT Page 1 of 1 X Leon Harris MD X PROCEDURE OPERATIVE NOTE
== END | disposition home or self-care (01) ==
LOC: COPS 09:49
DX: Z12.11 Encounter for screening for malignant neoplasm of colon (principal); K57.30 Diverticulosis of large intestine without perforation or abscess without bleeding; K29.70 Gastritis, unspecified, without bleeding; K20.9 Esophagitis, unspecified; K22.70 Barrett's esophagus without dysplasia; K21.9 Gastro-esophageal reflux disease without esophagitis; F17.220 Nicotine dependence, chewing tobacco, uncomplicated; Z86.010 Personal history of colon polyps; Z88.8 Allergy status to other drugs, medicaments and biological substances; Z79.899 Other long term (current) drug therapy; Z98.1 Arthrodesis status; Z98.890 Other specified postprocedural states
CPT/HCPCS: 43239; G0105; 87077; 88305; J2250